=== PATIENT | male | born 1945 | race Caucasian/White ===

== ENCOUNTER 2021-02-28 21:50 | Emergency (ER) | payer MEDICARE ==
[~2021-02-28] VITALS: Ht 180.3 cm; Wt 106.1 kg
[2021-02-28] MEDS ORDERED: LevALBUTEROL HCL 1.25 MG/0.5 ML *CONC.* VIAL.NEB (XOPENEX CONC.) INH ONE (22:00)
[2021-02-28] MEDS ORDERED: IPRATROPIUM BROM 0.5 MG/2.5 ML VIAL.NEB (ATROVENT) INH ONE ×2 (22:00→22:07)
[2021-02-28 22:02] VITALS: BP_SYST 127
[2021-02-28 22:19] LABS: BASOPHILS % (AUTO) 0.4 % (0.0-2.0); EOSINOPHILS # (AUTO) 0.1 K/uL (0.0-0.4); EOSINOPHILS % (AUTO) 1.4 % (0.0-4.0); HEMATOCRIT 45.8 % (36-54); HEMOGLOBIN 14.9 g/dL (14.0-18.0); LYMPHOCYTES # (AUTO) 1.5 K/uL (1.0-5.5); LYMPHOCYTES % (AUTO) 19.5 % (20.5-51.5); MEAN CORPUSCULAR HEMOGLOBIN 29 pg (27-31); MEAN CORPUSCULAR HGB CONC 32 % (32-36); MEAN CORPUSCULAR VOLUME 90 fL (79.0-98.0); MONOCYTES # (AUTO) 0.6 K/uL (0.0-1.0); MONOCYTES % (AUTO) 8.3 % (1.7-9.3); NEUTROPHILS # (AUTO) 5.4 K/uL (1.8-7.7); NEUTROPHILS % (AUTO) 70.4 % (40.0-70.0); PLATELET COUNT (AUTO) 143 K/uL (130-430); RED BLOOD CELL COUNT(AUTO) 5.07 MIL/uL (4.2-6.2); RED CELL DISTRIBUTION WIDTH 15.2 % (9.0-15.0); WHITE BLOOD COUNT (AUTO) 7.7 K/uL (4.8-10.8)
[2021-02-28 22:28] LABS: ANION GAP 4 (5-15); CALCIUM 7.8 mg/dL (8.4-11.0); CHLORIDE 101 mmol/L (98-107); CREATININE 1.74 mg/dL (0.55-1.30); GLUCOSE 90 mg/dL (70-99); POTASSIUM 4.4 mmol/L (3.5-5.1); SODIUM SERUM 135 mmol/L (136-145); UREA NITROGEN, BLOOD 28 mg/dL (8-21)
[2021-02-28 22:33] LABS: ALANINE AMINOTRANSFERASE 20 U/L (12-78); ALBUMIN 2.6 g/dL (3.4-4.8); ASPARTATE AMINOTRANSFERASE 17 U/L (10-37); TOTAL BILIRUBIN 0.6 mg/dL (0.0-1.0)
[2021-02-28] MEDS ORDERED: DABI150C PO (22:36)
[2021-02-28] MEDS ORDERED: LISI-209 PO (22:36)
[2021-02-28] MEDS ORDERED: FERR236T3 PO (22:36)
[2021-02-28] MEDS ORDERED: HYT1 PO (22:36)
[2021-02-28] MEDS ORDERED: FURO-150 PO (22:36)
[2021-02-28] MEDS ORDERED: MELA10TA2 PO (22:36)
[2021-02-28] MEDS ORDERED: LIP20 PO (22:36)
[2021-02-28] MEDS ORDERED: LORA10TA7 PO (22:36)
[2021-02-28] MEDS ORDERED: CARV3.1246 PO (22:36)
[2021-02-28] MEDS ORDERED: ASCO500C18 PO (22:36)
[2021-02-28] MEDS ORDERED: SSNPH SQ (22:36)
[2021-02-28] MEDS ORDERED: ERGO500020 (22:36)
[2021-02-28] MEDS ORDERED: AZITHROMYCIN 500 MG in NS 250 ML IV ONE (23:15)
[2021-02-28] MEDS ORDERED: AZITHROMYCIN 500 MG/VIAL (ZITHROMAX) IV ONE (23:18)
[2021-02-28 23:37] LABS: INR 2.2 (0.80-1.20)
[2021-02-28 23:39] LABS: PROTHROMBIN TIME 21.8 SECS (9.5-12.5)
[2021-03-01] MEDS ORDERED: DEXAMETHASONE SOD PHOSPHATE 10 MG/ML VIAL ONE (02:58)
[2021-03-01] MEDS ORDERED: DEXAMETHASONE SOD PHOSPHATE 10 MG/ML VIAL IVP ONE (03:00)
[2021-03-01 03:40] VITALS: BP_SYST 138
== END 2021-03-01 03:40 | disposition hospice, inpatient (51) ==
LOC: SED 21:50
DX: R06.00 Dyspnea, unspecified (principal); J90 Pleural effusion, not elsewhere classified; J44.9 Chronic obstructive pulmonary disease, unspecified; I50.9 Heart failure, unspecified; E11.9 Type 2 diabetes mellitus without complications; I48.91 Unspecified atrial fibrillation; Z79.899 Other long term (current) drug therapy; Z79.4 Long term (current) use of insulin; Z88.2 Allergy status to sulfonamides; Z20.822 Contact with and (suspected) exposure to COVID-19
CPT/HCPCS: 36415; 36600; 71045; 80053; 82803; 82962; 83605; 83880; 84484; 85025; 85610; 85730; 87040; 87426; 93005; 94640; 96365; 96375; 99285; J0456; J1100; J7612